=== PATIENT | male | born 1980 | race American Indian/Alaskan Native ===

== ENCOUNTER 2017-10-28 00:01 | Emergency (ER) | payer OTHER ==
[2017-10-28 01:46] VITALS: BP 134/95
[2017-10-28] MEDS ORDERED: FLEXERIL PO ONE (04:15)
[2017-10-28] MEDS ORDERED: TORADOL IM ONE (04:15)
[2017-10-28] MEDS ORDERED: TORADOL ONE (04:31)
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
== END 2017-10-28 05:16 | disposition home or self-care (01) ==
LOC: ED 00:01
DX: S16.1XXA Strain of muscle, fascia and tendon at neck level, initial encounter (principal); F12.10 Cannabis abuse, uncomplicated; V49.9XXA Car occupant (driver) (passenger) injured in unspecified traffic accident, initial encounter; Y93.89 Activity, other specified; Y92.89 Other specified places as the place of occurrence of the external cause; Y99.8 Other external cause status
CPT/HCPCS: 96372; 99282; J1885